=== PATIENT | female | born 1975 | race American Indian/Alaskan Native ===

== ENCOUNTER 2020-02-02 16:14 | Inpatient (IN) | payer MEDICARE ==
--- NOTE | 2020-02-02 16:51 | Emergency Department Report ---
ED General Adult HPI - General Stated complaint: ALTERED MENTAL STATUS Time Seen by Provider: 02/02/20 16:39 Source: patient - History of Present Illness Initial comments: Patient is 45 years old female, morbidly obese with multiple decubitus wound. Patient is end-stage renal disease on hemodialysis. Patient brought to the [facility] room via EMS from home for evaluation of altered mental status and missed 3 sessions of dialysis so far. Patient looks very dry with cracked lips. Patient will answer questions and then will go to sleep and wake up again. Patient is alert and oriented to place and person but not time. She denied any fever or chills. Patient did not give a reason for not going to dialysis. - Related Data Allergies Allergy/AdvReac Type Severity Reaction Status Date / Time No Known Allergies Allergy Unverified 02/02/20 19:00 ED Review of Systems ROS: Stated complaint: ALTERED MENTAL STATUS Other details as noted in HPI Comment: All other systems reviewed and negative Constitutional: denies: chills, fever Respiratory: denies: cough, shortness of breath, SOB with exertion Cardiovascular: denies: chest pain Gastrointestinal: denies: abdominal pain, nausea Neurological: denies: headache, weakness ED Physical Exam - General General appearance: alert, in no apparent distress - Head Head exam: Present: atraumatic, normocephalic, normal inspection - Eye Eye exam: Present: normal appearance - ENT ENT exam: Present: mucous membranes dry - Neck Neck exam: Present: normal inspection. Absent: tenderness, meningismus - Respiratory Respiratory exam: Present: normal lung sounds bilaterally - Cardiovascular Cardiovascular Exam: Present: regular rate, normal rhythm, normal heart sounds - GI/Abdominal GI/Abdominal exam: Present: soft. Absent: distended, tenderness, guarding, rebound, rigid, pulsatile mass - Extremities Exam Extremities exam: Present: other (Left foot, heel wound with granulation tissue, no obvious discharge.) - Neurological Exam Neurological exam: Present: alert, CN II-XII intact - Psychiatric Psychiatric exam: Present: flat affect - Skin Skin exam: Present: dry ED Course Vital Signs 02/02/20 02/02/20 02/02/20 16:41 16:46 17:00 Temperature Pulse Rate 109 H Respiratory 18 20 Rate Blood Pressure 103/62 103/62 Blood Pressure [Right] O2 Sat by Pulse 73 L 92 100 Oximetry 02/02/20 02/02/2002/01/20 17:02 17:16 17:17 Temperature 98.2 F Pulse Rate 107 H 105 H Respiratory 21 16 18 Rate Blood Pressure 103/62 113/52 Blood Pressure 103/62 [Right] O2 Sat by Pulse 100 98 100 Oximetry 02/02/20 02/02/20 02/02/20 17:30 17:46 18:00 Temperature Pulse Rate 107 H 105 H 105 H Respiratory 29 H 13 11 L Rate Blood Pressure 103/62 113/52 Blood Pressure [Right] O2 Sat by Pulse 95 100 100 Oximetry 02/02/20 02/02/20 02/02/20 18:16 18:30 18:46 Temperature Pulse Rate 103 H 104 H 104 H Respiratory 22 14 25 H Rate Blood Pressure 113/52 113/52 113/52 Blood Pressure [Right] O2 Sat by Pulse 100 100 100 Oximetry 02/02/20 02/02/20 02/02/20 19:00 19:10 19:20 Temperature Pulse Rate Respiratory 27 H 26 H 32 H Rate Blood Pressure 113/52 80/33 80/33 Blood Pressure [Right] O2 Sat by Pulse 100 100 100 Oximetry 02/02/20 02/02/20 02/02/20 19:30 19:40 19:50 Temperature Pulse Rate Respiratory 26 H 25 H 26 H Rate Blood Pressure 80/33 80/33 80/33 Blood Pressure [Right] O2 Sat by Pulse 100 100 100 Oximetry 02/02/20 20:00 Temperature Pulse Rate Respiratory 18 Rate Blood Pressure 84/39 Blood Pressure [Right] O2 Sat by Pulse 100 Oximetry ED Medical Decision Making - Lab Data Result diagrams: 02/02/20 16:53 02/03/20 05:02 - EKG Data -: EKG Interpreted by Al EKG shows normal: sinus rhythm Rate: tachycardia - EKG Data Interpretation: no acute changes - Radiology Data Radiology results: report reviewed - Medical Decision Making Patient is 45 years old female, morbidly obese with multiple decubitus wound. Patient is end-stage renal disease on hemodialysis. Patient brought to the [facility] room via EMS from home for evaluation of altered mental status and missed 3 sessions of dialysis so far. Patient looks very dry with cracked lips. Patient will answer questions and then will go to sleep and wake up again. Patient is alert and oriented to place and person but not time. She denied any fever or chills. Patient did not give a reason for not going to dialysis. Patient found to have a potassium of 5.7. Creatinine of 19.9 and a BUN of 98. Patient received dextrose and insulin. I discussed the patient with , casing splitter on-call and he stated that would be with dialysis order. I discussed the patient with Dr. Bell, he agreed to admit the patient to medical service for further management. Critical Care Time: Yes Critical care time in (mins) excluding proc time.: 30 Critical care attestation.: If time is entered above; I have spent that time in minutes in the direct care of this critically ill patient, excluding procedure time. ED Disposition Clinical Impression: Acute hyperkalemia, End-stage renal disease needing dialysis, Altered mental status, Decubitus ulcer Disposition: OP ADMIT IP TO THIS HOSP Is pt being admited?: Yes Condition: Stable
[2020-02-02 17:22] LABS: Basophils # (Auto) 0.1 K/mm3 (0.0-0.1); Basophils % (Auto) 0.7 % (0.0-1.8); Eosinophils % (Auto) 0.3 % (0.0-4.3); Hematocrit 26.1 % (30.3-42.9); Hemoglobin 8.4 gm/dl (10.1-14.3); Lymphocytes # (Auto) 1.2 K/mm3 (1.2-5.4); Lymphocytes % (Auto) 13.7 % (13.4-35.0); Mean Corpuscular HGB Conc 32 % (30-34); Mean Corpuscular Volume 109 fl (79-97); Monocytes % (Auto) 12.3 % (0.0-7.3); Platelet Count 187 K/mm3 (140-440)
--- NOTE | 2020-02-02 17:34 | XRay Report ---
CHEST 1 VIEW INDICATION / CLINICAL INFORMATION: Altered Mental Status. COMPARISON: None available. FINDINGS: SUPPORT DEVICES: Permacath is in place on the right. HEART / MEDIASTINUM: No significant abnormality. LUNGS / PLEURA: There is slight venous congestion but no infiltrate, edema or effusion. No pneumothor ax. ADDITIONAL FINDINGS: Vascular stents are seen in the left axillary region. IMPRESSION: 1 No acute abnormality Signer Name: Joseph Patricio MD Signed: 02/02/2020 5:30 PM Workstation Name: [id number]
[2020-02-02 17:40] LABS: Albumin 3.3 g/dL (3.9-5); Bilirubin,Direct 0.3 mg/dL (0-0.2); Calcium 9.5 mg/dL (8.4-10.2)
[2020-02-02] MEDS ORDERED: SODIUM CHLORIDE 0.9% 1000 ML 1,000 ML ONE (17:43)
[2020-02-02] MEDS ORDERED: SODIUM CHLORIDE 0.9% 1000 ML 1,000 ML IV ONE (18:00)
[2020-02-02] MEDS ORDERED: DEXTROSE 50% IN WATER (25GM) 50 ML SYRINGE IV ONE (18:16)
[2020-02-02] MEDS ORDERED: INSULIN REGULAR, HUMAN 100 UNITS/1 ML IV ONE (18:16)
--- NOTE | 2020-02-02 18:31 | History and Physical Report ---
History of Present Illness Chief complaint: I need dialysis History of present illness: 45 YO Female with ESRD on HD, Noncompliant with dialysis, Obesity Hypoventilation Syndrome, Anemia, Foot Ulcer presents to ED for evaluation. Pt is confused and lethargic at the time of my evaluation and is unable to provide history. Pt history taken from EMS staff, ED staff. As per staff, the patient notified EMS due to inability to undergo dialysis. Upon arrival the patient was found to be in distress and transported to [facility] for further care and evaluation. Pt seen and evaluated in ED and found to have ESRD in need of urgent dialysis, Metabolic Acidosis, Left Foot Ulcer, Metabolic Encephalopathy, as well as Fluid Overload, as well as Stasis Dermatitis. Pt admitted to medical floor due to increased risk of decompensation. Nephrology team consulted in ED for urgent dialysis. No further history obtainable. No prior admission for review. No medication listed at time of evaluation for reconciliation. Pt is lethargic at time of my evaluation but has a positive gag reflex and is able to protect her airway. Past History Past Medical History: ESRD, other (see HPI) Past Surgical History: Other (dialysis access) Social history: single. denies: smoking, alcohol abuse, prescription drug abuse Family history: diabetes, hypertension Medications and Allergies Allergies Allergy/AdvReac Type Severity Reaction Status Date / Time No Known Allergies Allergy Unverified 02/02/20 19:00 Review of Systems ROS unobtainable: due to mental status Exam - Constitutional Vitals: Temp Pulse Resp BP Pulse Ox 98.2 F 107 H 18 103/62 100 02/02/20 17:02 02/02/20 17:02 02/02/20 17:17 02/02/20 17:02 02/02/20 17:17 General appearance: Present: mild distress, obese, disheveled, malodorous - EENT Eyes: Present: PERRL ENT: hearing intact, clear oral mucosa - Neck Neck: Present: supple, normal ROM - Respiratory Respiratory: bilateral: diminished - Cardiovascular Heart Sounds: Present: S1 & S2. Absent: rub, click - Extremities Extremity abnormal: ulceration, black Peripheral Pulses: within normal limits - Abdominal General gastrointestinal: Present: soft, non-tender, non-distended, normal bowel sounds Female genitourinary: Present: normal - Integumentary Integumentary: Present: clear, warm, dry - Musculoskeletal Musculoskeletal: generalized weakness - Psychiatric Psychiatric: no appropriate mood/affect, no intact judgment & insight, no memory intact, no cooperative - Neurologic Neurologic: CNII-XII intact, no focal deficits, moves all extremities, no gait normal Results - Labs CBC & Chem 7: 02/02/20 16:53 02/02/20 16:53 Labs: Abnormal lab results 02/02/20 02/02/20 02/02/20 Range/Units 16:53 16:53 16:53 RBC 2.40 L (3.65-5.03) M/mm3 Hgb 8.4 L (10.1-14.3) gm/dl Hct 26.1 L (30.3-42.9) % MCV 109 H (79-97) fl MCH 35 H (28-32) pg RDW 20.0 H (13.2-15.2) % [place] % (Auto) 12.3 H (0.0-7.3) % [place] # 1.0 H (0.0-0.8) K/mm3 Seg Neutrophils % 73.0 H (40.0-70.0) % Potassium 5.7 H (3.6-5.0) mmol/L Chloride 97.1 L (98-107) mmol/L BUN 94 H (7-17) mg/dL Creatinine 19.9 H (0.7-1.2) mg/dL Lactic Acid 2.30 H* (0.7-2.0) mmol/L Direct Bilirubin 0.3 H (0-0.2) mg/dL AST 87 H (5-40) units/L Albumin 3.3 L (3.9-5) g/dL Assessment and Plan - Patient Problems (1) ESRD (end stage renal disease) Current Visit: Yes Status: Acute Plan to address problem: Nephrology team consulted in ED, strict I/O, monitor urine output every shift, daily weight, avoid nephrotoxic agents. (2) Fluid overload Current Visit: Yes Status: Acute Qualifiers: Hypervolemia type: other Qualified Code(s): E87.79 - Other fluid overload Plan to address problem: Urgent dialysis, monitor fluid balance, supportive care. (3) Metabolic encephalopathy Current Visit: Yes Status: Acute Plan to address problem: Neuro check, seizure precaution, aspiration precaution, BMP, urgent dialysis. 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 (5) Anemia in chronic kidney disease Current Visit: Yes Status: Acute Plan to address problem: Imaging as per renal team, supportive care. No transfusion at this time. (6) Obesity hypoventilation syndrome Current Visit: Yes Status: Acute Plan to address problem: Supplemental oxygen, nebulizer therapy, pulse oximetry, noninvasive positive pressure ventilation as clinically indicated. (7) DVT prophylaxis Current Visit: Yes Status: Acute Plan to address problem: SCD to bilateral lower extremities while in bed, prophylactic heparin
[2020-02-02] MEDS ORDERED: ALBUTEROL 2.5 MG/3 ML NEBU IH PRN (18:32)
[2020-02-02] MEDS ORDERED: ONDANSETRON 4 MG/2 ML INJ IV PRN (18:32)
[2020-02-02] MEDS ORDERED: ACETAMINOPHEN 325 MG TAB PO PRN (18:32)
[2020-02-02 18:41] LABS: INR 1.55 (0.87-1.13); Partial Thromboplastin Time 31.8 Sec. (24.2-36.6)
[2020-02-02] MEDS: HEPARIN 5,000 UNIT/1 ML VIAL SUB-Q SCH (23:29)
[2020-02-03 05:41] LABS: Albumin 2.7 g/dL (3.9-5); Calcium 8.7 mg/dL (8.4-10.2)
[2020-02-03] MEDS: HEPARIN 5,000 UNIT/1 ML VIAL SUB-Q SCH ×2 (10:00→22:36)
[2020-02-03 11:38] LABS: Hepatitis B Surface Antigen Non-Reactive (Negative); Hepatitis C Virus Antibody Non-Reactive (NonReactive)
--- NOTE | 2020-02-03 13:10 | Consultation ---
History of Present Illness - Reason for Consult Consult date: 02/03/20 - History of Present Illness 45 YO Female with ESRD on HD, Noncompliant with dialysis, unclear when she had the last treatment. was admitted yesterday for confusion likely due to uremic encephalopathy. ER requested nephrology consult for dialysis treatment. she was found in hypkerlmai and volume overload and urgent dialysis was ordered, she was seen in dialysis which she tolerating. Past History Past Medical History: ESRD, other (see HPI) Past Surgical History: Other (dialysis access) Social history: single. denies: smoking, alcohol abuse, prescription drug abuse Family history: diabetes, hypertension Medications and Allergies Allergies Allergy/AdvReac Type Severity Reaction Status Date / Time No Known Allergies Allergy Unverified 02/02/20 19:00 Active Meds: Active Medications Acetaminophen (Tylenol) 650 mg PO Q4H PRN PRN Reason: Pain MILD(1-3)/Fever >100.5/FINCH Albuterol (Proventil) 2.5 mg IH Q4HRT PRN PRN Reason: Shortness Of Breath Heparin Sodium (Porcine) (Heparin) 5,000 unit SUB-Q Q12HR [facility] Last Admin: 02/02/20 23:29 Dose: 5,000 unit Documented by: Ondansetron HCl (Zofran) 4 mg IV Q8H PRN PRN Reason: Nausea And Vomiting Last Admin: 02/02/20 19:06 Dose: 4 mg Documented by: Sodium Chloride (Sodium Chloride Flush Syringe 10 Ml) 10 ml IV BID [facility] Last Admin: 02/02/20 23:30 Dose: 10 ml Documented by: Sodium Chloride (Sodium Chloride Flush Syringe 10 Ml) 10 ml IV PRN PRN PRN Reason: LINE FLUSH Review of Systems All systems: negative (weakness) Exam - Vital Signs Vital signs: Vital Signs Pulse Ox 73 L 02/02/20 16:41 - General Appearance General appearance: well-developed, well-nourished EENT: ATNC, PERRL Neck: Present: neck supple Respiratory: Decreased Breath Sounds Heart: regular, S1S2 Gastrointestinal: Present: normoactive bowel sounds Integumentary: no rash, warm and dry Neurologic: no focal deficit, other (lethargic) Musculoskeletal: Present: other (trace pitting edema in BLE) Psychiatric: cooperative Results - Lab Results 02/02/20 16:53 02/03/20 05:02 Most recent lab results Calcium 8.7 mg/dL (8.4-10.2) 02/03/20 05:02 Assessment and Plan ESRD on HD Hyperkalemia Metabolic encephalopathy Anemia in CKD urgent HD today for clearance and volume removal HD again tomorrow will assess dialysis needs daily iron panel in AM Strict I&O daily weight renally dose meds Dre tate MD [phone]
--- NOTE | 2020-02-03 16:14 | Progress Note ---
Subjective Date of service: 02/03/20 Interval history: Patient is resting in the bed, sleepy but can be aroused but immediately goes back to sleep Not in any distress, she denies any pain Chart reviewed Lab results reviewed Nephrology note reviewed Unable to elicit significant history from the patientshe is falling asleep On examination No apparent distress HEENT: Normocephalic pupils are round reactive to light Neck: Supple, no JVD Lungs: Diminished but clear to auscultation Heart regular rate and rhythm Abdomen: Obese, benign Extremities: Bilateral lower extremity nonpitting 2-3+ edema with discoloration, dressing on the left foot ssessment and Plan - Patient Problems (1) ESRD (end stage renal disease) Current Visit: Yes Status: Acute Plan to address problem: History of noncompliance For the last hemodialysis is not known Nephrology note reviewed Status post hemodialysis (2) Fluid overload Current Visit: Yes Status: Acute Qualifiers: Hypervolemia type: other Qualified Code(s): E87.79 - Other fluid overload Plan to address problem: Nephrology note reviewed Status post hemodialysis this morning (3) Metabolic encephalopathy/uremic encephalopathy Current Visit: Yes Status: Acute Plan to address problem: Neuro check, seizure precaution, aspiration precaution, BMP, urgent dialysis. (4) 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 (5) macrocytic anemia in chronic kidney disease Current Visit: Yes Status: Chronic Plan to address problem: No overt bleed Monitor H&H (6) morbid obesity Current Visit: Yes Status: Acute Plan to address problem: Supplemental oxygen, nebulizer therapy, pulse oximetry, noninvasive positive pressure ventilation as clinically indicated. (7) DVT prophylaxis Current Visit: Yes Status: Acute Plan to address problem: SCD to bilateral lower extremities while in bed, prophylactic heparin Objective - Constitutional Vitals: Vital Signs - 12hr 02/03/20 02/03/20 02/03/20 08:04 09:40 09:50 Temperature 98.3 F Pulse Rate 82 82 Respiratory 16 Rate Blood Pressure 119/59 119/59 O2 Sat by Pulse 98 Oximetry 02/03/20 02/03/20 02/03/20 10:00 10:15 10:30 Temperature Pulse Rate 80 82 84 Respiratory Rate Blood Pressure 116/60 105/42 140/31 O2 Sat by Pulse Oximetry 06/02/03/20 02/03/20 10:45 11:00 11:15 Temperature Pulse Rate 83 81 87 Respiratory Rate Blood Pressure 96/47 94/45 83/38 O2 Sat by Pulse Oximetry 02/03/20 02/03/20 02/03/20 11:30 11:45 12:00 Temperature Pulse Rate 86 84 86 Respiratory Rate Blood Pressure 84/48 100/39 105/50 O2 Sat by Pulse Oximetry 02/03/20 02/03/20 02/03/20 12:15 12:31 12:45 Temperature Pulse Rate 85 84 87 Respiratory Rate Blood Pressure 134/51 117/49 98/50 O2 Sat by Pulse Oximetry 02/03/20 02/03/20 12:50 13:08 Temperature 98.1 F Pulse Rate 80 85 Respiratory 16 Rate Blood Pressure 110/60 116/55 O2 Sat by Pulse Oximetry - Labs CBC & Chem 7: 02/02/20 16:53 02/03/20 05:02 Labs: Abnormal lab results 02/02/20 02/02/20 02/02/20 Range/Units 16:53 16:53 16:53 RBC 2.40 L (3.65-5.03) M/mm3 Hgb 8.4 L (10.1-14.3) gm/dl Hct 26.1 L (30.3-42.9) % MCV 109 H (79-97) fl MCH 35 H (28-32) pg RDW 20.0 H (13.2-15.2) % [place] % (Auto) 12.3 H (0.0-7.3) % [place] # 1.0 H (0.0-0.8) K/mm3 Seg Neutrophils % 73.0 H (40.0-70.0) % PT 18.2 H (12.2-14.9) Sec. INR 1.55 H (0.87-1.13) Potassium 5.7 H (3.6-5.0) mmol/L Chloride 97.1 L (98-107) mmol/L BUN 94 H (7-17) mg/dL Creatinine 19.9 H (0.7-1.2) mg/dL POC Glucose (70-105) Lactic Acid (0.7-2.0) mmol/L Direct Bilirubin 0.3 H (0-0.2) mg/dL AST 87 H (5-40) units/L Albumin 3.3 L (3.9-5) g/dL 02/02/20 02/03/20 02/03/20 Range/Units 16:53 04:12 05:02 RBC (3.65-5.03) M/mm3 Hgb (10.1-14.3) gm/dl Hct (30.3-42.9) % MCV (79-97) fl MCH (28-32) pg RDW (13.2-15.2) % [place] % (Auto) (0.0-7.3) % [place] # (0.0-0.8) K/mm3 Seg Neutrophils % (40.0-70.0) % PT (12.2-14.9) Sec. INR (0.87-1.13) Potassium 5.6 H (3.6-5.0) mmol/L Chloride (98-107) mmol/L BUN 97 H (7-17) mg/dL Creatinine 19.5 H (0.7-1.2) mg/dL POC Glucose 117 H (70-105) Lactic Acid 2.30 H* (0.7-2.0) mmol/L Direct Bilirubin (0-0.2) mg/dL AST 53 H (5-40) units/L Albumin 2.7 L (3.9-5) g/dL
[2020-02-03] MEDS ORDERED: MORPHINE 2 MG/1 ML INJ IV ONE (21:19)
[2020-02-04 06:33] LABS: BUN/Creatinine Ratio 4; Blood Urea Nitrogen 52 mg/dL (7-17); Calcium 8.6 mg/dL (8.4-10.2); Hemolysis Index 93; Iron 29 ug/dL (37-170)
[2020-02-04 06:48] LABS: Total Iron Binding Capacity 126 mcg/dL (250-450)
--- NOTE | 2020-02-04 08:30 | Progress Note ---
Assessment and Plan ESRD on HD Hyperkalemia Metabolic encephalopathy Anemia in CKD HD today for clearance and volume removal will assess dialysis needs daily Strict I&O daily weight renally dose meds Dre tate MD [phone] Subjective Date of service: 02/04/20 Principal diagnosis: ESRD on HD Interval history: comfortable, oriented to self, no family at bedside Objective - Vital Signs Vital signs: Vital Signs - 12hr 02/03/20 02/03/20 02/03/20 21:00 22:00 22:37 Temperature Pulse Rate Pulse Rate [ 72 Apical] Respiratory 20 Rate Blood Pressure O2 Sat by Pulse 98 Oximetry 02/03/20 02/04/20 23:16 04:38 Temperature 98.6 F 98.3 F Pulse Rate 72 101 H Pulse Rate [ Apical] Respiratory 18 18 Rate Blood Pressure 114/84 134/80 O2 Sat by Pulse 97 75 L Oximetry - General Appearance General appearance: well-developed, well-nourished EENT: ATNC, PERRL Neck: no JVD, no carotid bruit Respiratory: Present: Clear to Ascultation Cardiology: regular, S1S2 Gastrointestinal: normoactive bowel sounds Integumentary: no rash, warm and dry Neurologic: no focal deficit, no asterixis Musculoskeletal: other (trace pitting edema in BLE) Psychiatric: cooperative - Lab 02/02/20 16:53 02/04/20 05:25 Most recent lab results Calcium 8.6 mg/dL (8.4-10.2) 02/04/20 05:25 Phosphorus 4.20 mg/dL (2.5-4.5) 02/04/20 05:25 Medications & Allergies - Medications Allergies/Adverse Reactions: Allergies No Known Allergies Allergy (Unverified 02/02/20 19:00) Active Medications: Generic Name Dose Route Start Last Admin Trade Name Freq PRN Reason Stop Dose Admin Acetaminophen 650 mg 02/02/20 18:32 Tylenol PO Q4H PRN Pain MILD(1-3)/Fever >100.5/FINCH Albuterol 2.5 mg 02/02/20 18:32 Proventil IH Q4HRT PRN Shortness Of Breath Heparin Sodium (Porcine) 5,000 unit 02/02/20 22:00 02/03/20 22:36 Heparin SUB-Q 5,000 unit Q12HR VERONICA Administration Ondansetron HCl 4 mg 06/17/20 18:32 02/02/20 19:06 Zofran IV 4 mg Q8H PRN Administration Nausea And Vomiting Sodium Chloride 10 ml 02/02/20 22:00 02/03/20 22:38 Sodium Chloride Flush Syringe 10 Ml IV 10 ml BID VERONICA Administration Sodium Chloride 10 ml 02/02/20 18:32 Sodium Chloride Flush Syringe 10 Ml IV PRN PRN LINE FLUSH
[2020-02-04] MEDS: HEPARIN 5,000 UNIT/1 ML VIAL SUB-Q SCH ×2 (10:03→23:31)
--- NOTE | 2020-02-04 10:35 | Progress Note ---
Subjective Date of service: 02/04/20 Principal diagnosis: ESRD on HD Interval history: Patient is resting in the bed, alert and oriented, no complaints Not in any distress, she complains of low backache which is chronic States she had surgery on her left foot 3 weeks ago and is taking pain medi cations and wants to restart on them Lab results reviewed Nephrology note reviewed On examination No apparent distress HEENT: Normocephalic pupils are round reactive to light Neck: Supple, no JVD Lungs: Diminished but clear to auscultation Heart regular rate and rhythm Abdomen: Obese, benign Extremities: Bilateral lower extremity nonpitting 2-3+ edema with discoloration, dressing on the left foot Neuro: Alert and oriented x3, moves all extremities, no focal deficit Assessment and Plan - Patient Problems (1) ESRD (end stage renal disease) Current Visit: Yes Status: Acute Plan to address problem: History of noncompliance Nephrology note reviewed and discussed Status post hemodialysis (2) Fluid overload Current Visit: Yes Status: Acute Qualifiers: Hypervolemia type: other Qualified Code(s): E87.79 - Other fluid overload Plan to address problem: Nephrology note reviewed For repeat hemodialysis today Discussed with Dr. tate Possible discharge tomorrow (3) Metabolic encephalopathy/uremic encephalopathy-improved Current Visit: Yes Status: Acute Plan to address problem: (4) 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 Evaluation pending (5) macrocytic anemia in chronic kidney disease Current Visit: Yes Status: Chronic Plan to address problem: No overt bleed Monitor H&H (6) morbid obesity Current Visit: Yes Status: chronic Plan to address problem: Weight loss and dietary restrictions and daily exercise if at all possible Discussed with patient the complications and side effects of overweight (7) DVT prophylaxis Current Visit: Yes Status: Acute Plan to address problem: SCD to bilateral lower extremities while in bed, prophylactic heparin 8) hyperkalemia Improved after hemodialysis Monitor electrolytes Likely discharge tomorrow Objective - Constitutional Vitals: Vital Signs - 12hr 02/03/20 02/03/20 02/04/20 22:37 23:16 04:38 Temperature 98.6 F 98.3 F Pulse Rate 72 101 H Respiratory 20 18 18 Rate Blood Pressure 114/84 134/80 O2 Sat by Pulse 97 75 L Oximetry - Labs CBC & Chem 7: 02/02/20 16:53 02/04/20 05:25 Labs: Abnormal lab results 02/04/20 02/04/20 Range/Units 05:25 05:25 BUN 52 H (7-17) mg/dL Creatinine 11.7 H (0.7-1.2) mg/dL Iron 29 L (37-170) ug/dL TIBC 126 L (250-450) mcg/dL Ferritin 1934.0 H (13.0-400.0) ng/mL
[2020-02-04] MEDS ORDERED: MORPHINE 2 MG/1 ML INJ IV ONE (23:40)
[2020-02-05 07:31] LABS: Calcium 8.7 mg/dL (8.4-10.2)
[2020-02-05] MEDS: METOPROLOL TARTRATE 25 MG TAB PO SCH ×2 (10:16→22:07)
[2020-02-05] MEDS: cephALEXin 500 MG CAP PO SCH ×2 (10:16→22:08)
[2020-02-05] MEDS: HEPARIN 5,000 UNIT/1 ML VIAL SUB-Q SCH ×2 (10:17→22:08)
--- NOTE | 2020-02-05 10:44 | Progress Note ---
Assessment and Plan ESRD on HD Hyperkalemia Metabolic encephalopathy Anemia in CKD HD again today for clearance and volume removal can be discharged from renal standpoint post HD will assess dialysis needs daily Strict I&O daily weight renally dose meds Dre tate MD [phone] Subjective Date of service: 02/05/20 Principal diagnosis: ESRD on HD Interval history: tolerated HD yesterday Objective - Vital Signs Vital signs: Vital Signs - 12hr 02/04/20 02/05/20 23:54 05:34 Temperature 99.1 F 100.0 F H Pulse Rate 88 112 H Respiratory 20 20 Rate Blood Pressure 105/53 101/46 O2 Sat by Pulse 92 89 Oximetry - Lab 02/02/20 16:53 02/05/20 06:30 Most recent lab results Calcium 8.7 mg/dL (8.4-10.2) 02/05/20 06:30 Phosphorus 3.60 mg/dL (2.5-4.5) 02/05/20 06:30 Medications & Allergies - Medications Allergies/Adverse Reactions: Allergies No Known Allergies Allergy (Unverified 02/02/20 19:00) Home Medications: Home Medications Medication Instructions Recorded Confirmed Last Taken Type B Complex W-C No.20/Folic Acid 2 mg PO DAILY 02/04/20 02/04/20 02/01/20 History [Nephrocaps Softgel] Cholecalciferol Vit D3 [Vitamin D3 1,000 unit PO QDAY 02/04/20 02/04/20 02/01/20 History 1,000 UNIT TAB] Cinacalcet [Sensipar] 30 mg PO QDAY 02/04/20 02/04/20 02/01/20 History Gabapentin [Neurontin] 100 mg PO Q8H 02/04/20 02/04/20 02/01/20 History Hydrocortisone 1% [Hydrocortisone 1 applicatio TP TID 02/04/20 02/04/20 02/01/20 History 1% CREAM] Melatonin [Melatonin 2.5MG CHEW] 2.5 mg PO QHS 02/04/20 02/04/20 02/01/20 History Metoprolol [Lopressor] 12.5 mg PO BID 02/04/20 02/04/20 02/01/20 History Midodrine [Proamatine] 10 mg PO TID 02/04/20 02/04/2020 History OXYCODONE hcl [Oxycodone] 10 mg PO Q4H PRN 02/04/20 02/04/20 02/01/20 History Oxycodone HCl [oxyCONTIN ER] 10 mg PO Q12HR 02/04/20 02/04/20 02/01/20 History Sevelamer Carbonate [Renvela] 3,200 mg PO TIDWM 02/04/20 02/04/20 02/01/20 History Sod,Ammonium,Potassium Lactate 85 gm TP PRN 02/04/20 02/04/20 02/01/20 History [Amlactin Foot Cream] medroxyPROGESTERone ACETATE 20 mg PO DAILY 02/04/20 02/04/20 02/01/20 History [Provera] polyethylene glycoL 3350 [Miralax 17 gm PO QDAY 02/04/20 02/04/20 02/01/20 History 3350] Active Medications: Generic Name Dose Route Start Last Admin Trade Name Freq PRN Reason Stop Dose Admin Acetaminophen 650 mg 02/02/20 18:32 02/05/20 05:46 Tylenol PO 650 mg Q4H PRN Administration Pain MILD(1-3)/Fever >100.5/FINCH Albuterol 2.5 mg 02/02/20 18:32 Proventil IH Q4HRT PRN Shortness Of Breath Cephalexin 500 mg 02/05/20 10:00 02/05/20 10:16 Keflex PO 500 mg Q12HR VERONICA Administration Heparin Sodium (Porcine) 5,000 unit 02/02/20 22:00 02/05/20 10:17 Heparin SUB-Q 5,000 unit Q12HR VERONICA Administration Metoprolol Tartrate 12.5 mg 02/05/20 10:00 02/05/20 10:16 Metoprolol PO 12.5 mg BID VERONICA Administration Midodrine 10 mg 02/05/20 14:00 Proamatine PO TID VERONICA Ondansetron HCl 4 mg 02/02/20 18:32 02/02/20 19:06 Zofran IV 4 mg Q8H PRN Administration Nausea And Vomiting Sodium Chloride 10 ml 02/02/20 22:00 02/05/20 10:19 Sodium Chloride Flush Syringe 10 Ml IV 10 ml BID VERONICA Administration Sodium Chloride 10 ml 02/02/20 18:32 Sodium Chloride Flush Syringe 10 Ml IV PRN PRN LINE FLUSH
--- NOTE | 2020-02-05 13:48 | Discharge Summary ---
Providers - Providers Date of Admission: 02/02/20 18:32 Date of discharge: 02/05/20 Attending physician: NAWAF THOMAS 02/02/20 18:29 Consult to Physician [CONS] Stat Comment: HE OMEGA W/DR HAGEN @[id number] Consulting Provider: APOORVA HAGEN Physician Instructions: Reason For Exam: End-stage renal disease, hyperkalemia 02/02/20 19:09 Consult to Wound/ET Nurse [CONS] Routine Reason For Exam: wound eval Primary care physician: LEAD HANDLER Hospitalization Condition: Stable Hospital course: Patient is resting in the bed, alert and oriented, no complaints Not in any distress, she complains of low backache which is chronic States she had surgery on her left foot 3 weeks ago and is taking pain medications and wants to restart on them Lab results reviewed Nephrology note reviewed On examination No apparent distress HEENT: Normocephalic pupils are round reactive to light Neck: Supple, no JVD Lungs: Diminished but clear to auscultation Heart regular rate and rhythm Abdomen: Obese, benign Extremities: Bilateral lower extremity nonpitting 2-3+ edema with discoloration, dressing on the left foot Neuro: Alert and oriented x3, moves all extremities, no focal deficit Assessment and Plan - Patient Problems (1) ESRD (end stage renal disease) Current Visit: Yes Status: Acute Plan to address problem: History of noncompliance Nephrology note reviewed and discussed Patient to receive hemodialysis for a third straight day today after which she will be discharged (2) Fluid overload Current Visit: Yes Status: Acute Qualifiers: Hypervolemia type: other Qualified Code(s): E87.79 - Other fluid overload Plan to address problem: Nephrology note reviewed For repeat hemodialysis today Discussed with Dr. 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 Wound care note reviewed Multiple wounds on the knees left foot and buttock Discussed with showcase maker Patient needs home health aide and wound care nurse follow-up (5) macrocytic anemia in chronic kidney disease Current Visit: Yes Status: Chronic Plan to address problem: No overt bleed Monitor H&H (6) morbid obesity Current Visit: Yes Status: chronic Plan to address problem: Weight loss and dietary restrictions and daily exercise if at all possible Discussed with patient the complications and side effects of overweight Suspect patient has obstructive sleep apnea Patient was told to follow-up with ship propeller finisher for sleep study hyperkalemia Improved after hemodialysis Disposition: DC-01 TO HOME OR SELFCARE Time spent for discharge: 38 min Core Measure Documentation - Palliative Care Palliative Care/ Comfort Measures: Not Applicable - Core Measures Any of the following diagnoses?: none Exam - Constitutional Vitals: Temp Pulse Resp BP Pulse Ox 99.1 F 100 H 20 129/71 98 02/05/20 11:41 02/05/20 11:41 02/05/20 11:41 02/05/20 11:41 02/05/20 11:41 Plan Activity: advance as tolerated, fall precautions Weight Bearing Status: Weight Bear as Tolerated Diet: regular, low fat, low cholesterol, renal Special Instructions: restrict fluid intake to (1200 ml/day), physical therapy, occupational therapy, other (Home health aide and home wound care nurse. Discussed with showcase maker) Durable Medical Equipment Needed Upon Discharge: Bedside Commode Additional Instructions: Patient needs to follow-up with pulmonary Dr. Garcia for sleep study. Continue hemodialysis 3 times a week Assessment: Continue hemodialysis 3 times a week Follow up with: PRIMARY CAREMD [Primary Care Provider] - 3-5 Days SANFORD GARCIA MD [Staff Physician] - 7 Days Prescriptions: cephALEXin [Keflex] 500 mg PO Q12HR #10 capsule Metoprolol [Lopressor TAB] 12.5 mg PO BID #30 tablet
[2020-02-05] MEDS: MIDODRINE 5 MG TAB PO SCH ×2 (14:21→22:09)
[2020-02-06 06:09] VITALS: BP 101/57
--- NOTE | 2020-02-06 07:19 | Progress Note ---
Subjective Date of service: 02/06/20 Principal diagnosis: ESRD on HD Interval history: Hospitalization Condition: Stable Hospital course: Patient is resting in the bed, alert and oriented, no complaints Not in any distress, she complains of low backache which is chronic Lab results reviewed Nephrology note reviewed Patient's discharge was delayed due to delay in home health care and wound care arrangements Patient is medically stable. Hopefully the arrangements should be done today On examination No apparent distress HEENT: Normocephalic pupils are round reactive to light Neck: Supple, no JVD Lungs: Diminished but clear to auscultation Heart regular rate and rhythm Abdomen: Obese, benign Extremities: Bilateral lower extremity nonpitting 2-3+ edema with stasis discoloration, dressing on the left foot Neuro: Alert and oriented x3, moves all extremities, no focal deficit Assessment and Plan - Patient Problems (1) ESRD (end stage renal disease) Current Visit: Yes Status: Acute Plan to address problem: History of noncompliance Nephrology note reviewed and discussed Patient underwent hemodialysis for 3 days straight Patient will be discharged when home health and wound care arrangements are made (2) Fluid overload Current Visit: Yes Status: Acute Qualifiers: Hypervolemia type: other Qualified Code(s): E87.79 - Other fluid overload Plan to address problem: Nephrology note reviewed Improved Stable for discharge when home health care arrangements are made (3) Metabolic encephalopathy/uremic encephalopathy-improved Current Visit: Yes Status: Acute Plan to address problem: Improved (4) 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 Wound care note reviewed Multiple wounds on the knees left foot and buttock Discussed with field case manager Patient needs home health aide and wound care nurse arrangements (5) macrocytic anemia in chronic kidney disease Current Visit: Yes Status: Chronic Plan to address problem: No overt bleed H&H stable (6) morbid obesity Current Visit: Yes Status: chronic Plan to address problem: Weight loss and dietary restrictions and daily exercise if at all possible Discussed with patient the complications and side effects of overweight Suspect patient has obstructive sleep apnea Patient was told to follow-up with measuring machine operator for sleep study Will refer to Dr. Garcia for outpatient follow-up for sleep study hyperkalemia Improved after hemodialysis Objective - Constitutional Vitals: Vital Signs - 12hr 02/05/20 02/05/20 02/06/20 22:00 22:30 04:47 Temperature 98.6 F 98.5 F Pulse Rate 101 H 100 H Respiratory 18 18 18 Rate Blood Pressure 105/67 101/57 O2 Sat by Pulse 99 92 Oximetry - Labs CBC & Chem 7: 02/02/20 16:53 02/05/20 06:30 Labs: Abnormal lab results 02/05/20 Range/Units 06:30 BUN 29 H (7-17) mg/dL Creatinine 8.2 H (0.7-1.2) mg/dL
[2020-02-06] MEDS: MIDODRINE 5 MG TAB PO SCH (08:00)
[2020-02-06 08:44] LABS: Calcium 8.5 mg/dL (8.4-10.2)
--- NOTE | 2020-02-06 09:09 | Progress Note ---
Assessment and Plan ESRD on HD Hyperkalemia Metabolic encephalopathy Anemia in CKD no indication for HD today will assess dialysis needs daily Strict I&O daily weight renally dose meds Dre tate MD [phone] Subjective Date of service: 02/06/20 Principal diagnosis: ESRD on HD Interval history: tolerated HD yesterday Objective - Vital Signs Vital signs: Vital Signs - 12hr 02/05/20 02/05/20 02/06/20 22:00 22:30 04:47 Temperature 98.6 F 98.5 F Pulse Rate 101 H 100 H Respiratory 18 18 18 Rate Blood Pressure 105/67 101/57 O2 Sat by Pulse 99 92 Oximetry - General Appearance General appearance: well-developed, well-nourished EENT: ATNC, PERRL Neck: no JVD, no carotid bruit Respiratory: Present: Clear to Ascultation. Absent: Rales Cardiology: regular, S1S2 Gastrointestinal: normoactive bowel sounds, no absent bowel sounds, no tenderness Integumentary: no rash, warm and dry Neurologic: no focal deficit, no asterixis Musculoskeletal: other (no edema in BLE) Psychiatric: cooperative - Lab 02/02/20 16:53 02/06/20 07:24 Most recent lab results Calcium 8.5 mg/dL (8.4-10.2) 02/06/20 07:24 Phosphorus 3.40 mg/dL (2.5-4.5) 02/06/20 07:24 Medications & Allergies - Medications Allergies/Adverse Reactions: Allergies No Known Allergies Allergy (Unverified 02/02/20 19:00) Home Medications: Home Medications Medication Instructions Recorded Confirmed Last Taken Type B Complex W-C No.20/Folic Acid 2 mg PO DAILY 02/04/20 02/04/20 02/01/20 History [Nephrocaps Softgel] Cholecalciferol Vit D3 [Vitamin D3 1,000 unit PO QDAY 02/04/20 02/04/20 02/01/20 History 1,000 UNIT TAB] Cinacalcet [Sensipar] 30 mg PO QDAY 02/04/20 02/04/20 02/01/20 History Gabapentin [Neurontin] 100 mg PO Q8H 02/04/20 02/04/20 02/01/20 History Hydrocortisone 1% [Hydrocortisone 1 applicatio TP TID 02/04/20 02/04/20 02/01/20 History 1% CREAM] Melatonin [Melatonin 2.5MG CHEW] 2.5 mg PO QHS 02/04/20 02/04/20 02/01/20 History Midodrine [Proamatine] 10 mg PO TID 02/04/20 02/04/20 02/01/20 History OXYCODONE hcl [Oxycodone] 10 mg PO Q4H PRN 02/04/20 02/04/20 02/01/20 History Oxycodone HCl [oxyCONTIN ER] 10 mg PO Q12HR 02/04/20 02/04/20 02/01/20 History Sevelamer Carbonate [Renvela] 3,200 mg PO TIDWM 02/04/20 02/04/20 02/01/20 History Sod,Ammonium,Potassium Lactate 85 gm TP PRN 02/04/20 02/04/20 02/01/20 History [Amlactin Foot Cream] medroxyPROGESTERone ACETATE 20 mg PO DAILY 02/04/20 02/04/20 02/01/20 History [Provera] polyethylene glycoL 3350 [Miralax 17 gm PO QDAY 02/04/20 02/04/20 02/01/20 History 3350] ALBUTEROL NEB's [Proventil 0.083% 2.5 mg IH Q4HRT PRN nebu 02/05/20 Unknown Rx NEBS] Metoprolol [Lopressor TAB] 12.5 mg PO BID #30 tablet 02/05/20 Unknown Rx cephALEXin [Keflex] 500 mg PO Q12HR #10 capsule 02/05/20 Unknown Rx Active Medications: Generic Name Dose Route Start Last Admin Trade Name Freq PRN Reason Stop Dose Admin Acetaminophen 650 mg 02/02/20 18:32 02/05/20 05:46 Tylenol PO 650 mg Q4H PRN Administration Pain MILD(1-3)/Fever >100.5/FINCH Albuterol 2.5 mg 02/02/20 18:32 Proventil IH Q4HRT PRN Shortness Of Breath Cephalexin 500 mg 02/05/20 10:00 02/05/20 22:08 Keflex PO 500 mg Q12HR VERONICA Administration Heparin Sodium (Porcine) 5,000 unit 02/02/20 22:00 02/05/20 22:08 Heparin SUB-Q 5,000 unit Q12HR VERONICA Administration Metoprolol Tartrate 12.5 mg 02/05/20 10:00 02/05/20 22:07 Metoprolol PO 12.5 mg BID VERONICA Administration Midodrine 10 mg 02/05/20 14:00 02/05/20 22:09 Proamatine PO 10 mg TID VERONICA Administration Ondansetron HCl 4 mg 02/02/20 18:32 02/02/20 19:06 Zofran IV 4 mg Q8H PRN Administration Nausea And Vomiting Sodium Chloride 10 ml 02/02/20 22:00 02/05/20 22:10 Sodium Chloride Flush Syringe 10 Ml IV 10 ml BID VERONICA Administration Sodium Chloride 10 ml 02/02/20 18:32 Sodium Chloride Flush Syringe 10 Ml IV PRN PRN LINE FLUSH
[2020-02-06] MEDS: METOPROLOL TARTRATE 25 MG TAB PO SCH (10:02)
[2020-02-06] MEDS: cephALEXin 500 MG CAP PO SCH (10:02)
[2020-02-06] MEDS: HEPARIN 5,000 UNIT/1 ML VIAL SUB-Q SCH (10:02)
== END 2020-02-06 11:43 | disposition home health service (06) | DRG 640 ==
LOC: ED 16:14 → 3A 18:32
PROVIDERS: ADMIT Internal Medicine; ATTEND Internal Medicine
PROC: 5A1D70Z Performance of Urinary Filtration, Intermittent, Less than 6 Hours Per Day (ICD-10-PCS; principal; 2020-02-03)
PROC: 5A1D70Z Performance of Urinary Filtration, Intermittent, Less than 6 Hours Per Day (ICD-10-PCS; 2020-02-05)
DX: E87.5 Hyperkalemia (principal); G93.41 Metabolic encephalopathy; N18.6 End stage renal disease; Z68.43 Body mass index [BMI] 50.0-59.9, adult; E87.2 Acidosis; E87.70 Fluid overload, unspecified; E66.01 Morbid (severe) obesity due to excess calories; L89.90 Pressure ulcer of unspecified site, unspecified stage; I87.2 Venous insufficiency (chronic) (peripheral); D63.1 Anemia in chronic kidney disease; Z91.15 Patient's noncompliance with renal dialysis; Z83.3 Family history of diabetes mellitus; Z82.49 Family history of ischemic heart disease and other diseases of the circulatory system
CPT/HCPCS: 36415; 71045; 80048; 80053; 80074; 80076; 82140; 82728; 82962; 83550; 84100; 85025; 85610; 85730; 87040; 93005; 94760; 96361; 96374; 96375; G0378; J1644; J1815; J2270; J2405; J7030

== ENCOUNTER 2020-04-05 08:20 | Outpatient (CLI) | payer MEDICARE | END 2020-04-05 08:21 | disposition home or self-care (01) | LOC: WOUND 08:20 | PROVIDERS: ATTEND Surgery | DX: T81.89XD Other complications of procedures, not elsewhere classified, subsequent encounter (principal); E11.621 Type 2 diabetes mellitus with foot ulcer; L97.523 Non-pressure chronic ulcer of other part of left foot with necrosis of muscle; L97.423 Non-pressure chronic ulcer of left heel and midfoot with necrosis of muscle; E11.69 Type 2 diabetes mellitus with other specified complication; M86.372 Chronic multifocal osteomyelitis, left ankle and foot; N28.9 Disorder of kidney and ureter, unspecified; Z99.2 Dependence on renal dialysis; Y83.8 Other surgical procedures as the cause of abnormal reaction of the patient, or of later complication, without mention of misadventure at the time of the procedure | CPT/HCPCS: 99183; G0277 ==

== ENCOUNTER 2020-05-25 12:34 | Outpatient (CLI) | payer MEDICARE | END 2020-05-25 12:35 | disposition home or self-care (01) | LOC: WOUND 12:34 | PROVIDERS: ATTEND Surgery | DX: T81.89XD Other complications of procedures, not elsewhere classified, subsequent encounter (principal); E11.621 Type 2 diabetes mellitus with foot ulcer; L97.523 Non-pressure chronic ulcer of other part of left foot with necrosis of muscle; L97.423 Non-pressure chronic ulcer of left heel and midfoot with necrosis of muscle; S81.001D Unspecified open wound, right knee, subsequent encounter; E11.69 Type 2 diabetes mellitus with other specified complication; M86.372 Chronic multifocal osteomyelitis, left ankle and foot; Z99.2 Dependence on renal dialysis; W19.XXXD Unspecified fall, subsequent encounter; Y83.8 Other surgical procedures as the cause of abnormal reaction of the patient, or of later complication, without mention of misadventure at the time of the procedure | CPT/HCPCS: 99183; G0277 ==

== ENCOUNTER 2020-05-26 10:47 | Outpatient (CLI) | payer MEDICARE | END 2020-05-26 10:48 | disposition home or self-care (01) | LOC: WOUND 10:47 | PROVIDERS: ATTEND Internal Medicine | DX: T81.89XD Other complications of procedures, not elsewhere classified, subsequent encounter (principal); E11.621 Type 2 diabetes mellitus with foot ulcer; L97.523 Non-pressure chronic ulcer of other part of left foot with necrosis of muscle; L97.423 Non-pressure chronic ulcer of left heel and midfoot with necrosis of muscle; S81.001D Unspecified open wound, right knee, subsequent encounter; E11.69 Type 2 diabetes mellitus with other specified complication; M86.372 Chronic multifocal osteomyelitis, left ankle and foot; Z99.2 Dependence on renal dialysis; W19.XXXD Unspecified fall, subsequent encounter; Y83.8 Other surgical procedures as the cause of abnormal reaction of the patient, or of later complication, without mention of misadventure at the time of the procedure | CPT/HCPCS: 99183; G0277 ==

== ENCOUNTER 2020-05-30 14:09 | Outpatient (CLI) | payer MEDICARE | END 2020-05-30 14:10 | disposition home or self-care (01) | LOC: WOUND 14:09 | PROVIDERS: ATTEND Internal Medicine | DX: T81.89XD Other complications of procedures, not elsewhere classified, subsequent encounter (principal); E11.621 Type 2 diabetes mellitus with foot ulcer; L97.523 Non-pressure chronic ulcer of other part of left foot with necrosis of muscle; L97.423 Non-pressure chronic ulcer of left heel and midfoot with necrosis of muscle; S81.001D Unspecified open wound, right knee, subsequent encounter; E11.69 Type 2 diabetes mellitus with other specified complication; M86.372 Chronic multifocal osteomyelitis, left ankle and foot; Z99.2 Dependence on renal dialysis; W19.XXXD Unspecified fall, subsequent encounter; Y83.8 Other surgical procedures as the cause of abnormal reaction of the patient, or of later complication, without mention of misadventure at the time of the procedure | CPT/HCPCS: 99183; G0277 ==